=== PATIENT | female | born 1970 | race Caucasian/White ===

== ENCOUNTER 2024-07-30 10:30 | Outpatient (REF) | payer OTHER, SELFPAY ==
[2024-07-30 12:18] LABS: Anion Gap 14 (12-20); Blood Urea Nitrogen 31 mg/dL (9-16); Calcium 9.4 mg/dL (8.4-10.2); Carbon Dioxide 22 mmol/L (22-29); Chloride 109 mmol/L (96-108); Estimated Glomerular Filt Rate > 60; Glucose Random 87 mg/dL (60-115); Potassium 4.3 mmol/L (3.3-5.1); Sodium 141 mmol/L (135-145)
[2024-07-30 12:36] LABS: TSH reflex Free T4 0.15 uIU/mL (0.32-4.0)
[2024-08-03 17:43] LABS: Oxcarbazepine 30.7 mcg/mL (8.0-35.0)
== END 2024-07-30 10:31 | disposition home or self-care (01) ==
LOC: HO.LAB 10:30
PROVIDERS: PCP Internal Medicine; Visit Provider Psychiatry & Neurology Neurology
DX: G40.909 Epilepsy, unspecified, not intractable, without status epilepticus (principal)
CPT/HCPCS: 36415; 80048; 80339; 84439; 84443

== ENCOUNTER 2025-03-24 14:03 | Outpatient (REF) | payer OTHER, SELFPAY ==
--- NOTE | 2025-03-24 | EEG_ITS ---
Description: This is a routine waking EEG using the 10-20 electrode placement system. The waking background activity consists of a poorly defined and poorly modulated low voltage fast frequency diffusely intermixed with intermittent 9-10 hertz posterior frequencies. Recurrent episodes of left greater than right temporal slowing with occasional sharp transients and a single burst of 5-6 hertz sharp configuration theta is seen from the left temporal region. During sleep symmetrical frontal central sleep spindles develop a both hemispheres Photic stimulation is without activation.? Hyperventilation produces no change in the background activity. Impression: This EEG is considered abnormal due to episodes of left greater than right temporal slowing sharp transients in a burst of rhythmic sharp configuration left temporal theta discharge that is suggestive of a seizure focus in the left temporal region. Clinical correlation is suggested MTDD
--- OUTSIDE RECORDS SUMMARY | 2025-03-24 15:22 | XMS_ITS | Continuity of Care Document ---
Author Organization [facility] Address [address] [place] [address] Phone [phone] Care Team Providers Care [employer] Operator Name Role Phone Amelia Braxton M.D. Care Team Information Receiv er [phone] Problems Active Problems Provider Date Hypothyroidism German Gresham M.D. Onset: 1 10/08/2021 [place] thyroiditis German Gresham M.D. On set: 08/07/2022 Social History Type Date Description Comments Sex Female Sex Unknown Lives With Alone ETOH Use Rarely consumes alcohol Tobacco Use Start: Unknown Patient has never smoked Allergies and adverse reactions Active Allergies Criticality Reaction Severity Comments Date Penicillin Unable to assess criticality 08/07/2022 Erythromycin Unable to assess criticality 08/07/2022 Sulfamethoxazole Unable to assess criticality 08/07/2022 Adhesives Unable to assess criticality 08/07/2022 Medications Active Medications SIG Qnty Indications Order ing Provider Date Levothyroxine [id number] Tablets Take 1 Tablet By Mouth Every Day In The Morning Take 1/2 Tablet On Sunday 90tabs German Gresham M.D. 07/20/2022 Sodium Fluoride 5000 PPM Sensitive1.1-5% Gel Use as Directed Unknown Ondansetron HCL4mg Tablets Take 1 Tablet By Mouth 2 Times Daily as Needed For Nausea. German Donald MD Sumatriptan [id number] Tablets Please See Attached For Detailed Directions Unknown [id number] Solution Rec Unknown Ammonium Susglst14% Cream Apply And Rub In A Thin Film To Affected Areas Twice Daily.(Am And PM). Unknown Betamethasone Dipropionate0.05% Lotion Apply Daily To Scalp as Needed Unknown [id number] Capsules Take 1-2 Capsules By Mouth Every 8 Hours as Needed For Cough Valentin Lima MD Buspirone GYB74vl Tablets Take 1 Tablet By Mouth Three Times A Day Unknown Wmttkgtgl08qg Tablets ER 24HR Take 1 Tablet By Mouth Every Day Lona Spencer, Vokwlhmrv9xl Tablets Take 1 Tablet (1 MG ) By Oral Route Once Daily For 90 Days Unknown Rosuvastatin Cleqkdz33ne Tablets Take 1 Tablet By Mouth Every Day Amelia Braxton M.D. Neomycin/Polymyxin/H ydrocortisone (Otic)[id number] Suspension Instill 4 Drops Into Right Ear Every 8 Hours For 10 Days Torin Mathis NP [facility] Jntzynbmepbjq140vu Tablets Take 3 Tablets By Mouth Every 6 Hours as Needed For Moderate Pain For 7 Days Unknown Flarex0.1% Suspension Use One Drop In Both Eye 3 Times A Day Yon Pino Gshgbrs477zb Capsules Take 2 Capsules Intravesically Every Week Bring To Office For Bladder Instilla Lona Spencer, Epinephrine0.3mg/0.3 ML Solution Auto-Inject Use as Directed For Anaphylaxis Then Call 911 Valentin Lima MD Hydroxyzine OOO85jw Tablets Take 1 To 2 Tablets By Mouth Every Day AT Bedtime as Needed Unknown [facility] Senna8.6mg Tablets Take 2 Tablets By Mouth AT Bedtime German Donald MD Lorazepam0.5mg Tablets Take 1 Tablet By Mouth Three Times A Day Unknown [id number] Capsules Take 1 Capsule (200 MG) By Mouth Once Daily In The Evening For 90 Unknown Triamcinolone Acetonide0.1% Cream Mix With Cerave Cream, Apply Neck To Toes Daily After Showers Unknown Fluoxetine FMZ02cn Capsules Take 3 Capsules By Mouth Every Evening Unknown Urea40% Cream Apply And Rub In A Thin Film To Affected Area(S) Once Or Twice Daily. Unknown Bupropion Hydrochloride ER (XL)300mg Tablets ER 24HR Take 1 Tablet By Mouth Every Day In The Morning Unknown Trazodone LVS60mf Tablets Take 1/2 Tablet By Mouth Everyday AT Bedtime Unknown Tacrolimus0.1% Ointment Apply To Groin Topically Once Daily as Needed Unknown Lecnpqgfqotwy043fy Tablets Take 1 Tablet By Mouth Twice A Day Unknown Cpfdiyex221080Avum/G M Powder Apply To Affected Area Twice A Day Unknown Metronidazole0.75% Cream Apply To Face Every Day Unknown Ofloxacin (Otic)0.3% Solution Instill 10 Drops Into Affected Ear(S) By Otic Route Once Daily Unknown Estradiol0.1mg/GM Cream Apply 1 Gram Vaginally 3 Times A Week Unknown Vital Signs Date Vital Result Comment 09/25/2023 1:34pm BP Systolic 120 mmHg BP Diastolic 60 mmHg Heart Rate 72 /min Height 61 inches 5'1 Weight 133.31 lb BMI (Body Mass Index) 25.2 kg/m2 Results Test Acquired Date Facility Test Result H/L Range N ote TSH With Reflex To FT4 09/26/2023 [facility] TSH With Reflex To FT4 <pending> TSH With Reflex To FT4 09/25/2023 [facility] TSH With Reflex To FT4 0.37 uIU/mL Low (0.4-4.2) Free T4 09/25/2023 [facility] Free T4 1.11 ng/dL (0.70-1.80) TSH 01/01/2023 [facility] TSH 0.86 uIU/mL (0.4-4.2) TSH 08/07/2022 [facility] TSH <pending> TSH 07/19/2022 [facility] TSH 1.15 uIU/mL (0.4-4.2) Medical Devices Description No Information Available Encounters Type Date Location Provider Dx Diagnosis Office Visit 09/25/2023 1:15p Main Office German Gresham M.D. E06.3 Autoimmune thyroiditis E03.9 Hypothyroidism, unsp ecified Assessments Date Code Description Provider 09/26/2023 E03.9 Hypothyroidism, unspecified German Gresham M.D. 09/25/2023 E06.3 [place] thyroiditis German tapia M.D. 09/25/2023 E03.9 Hypothyroidism, unspecified German Gresham M.D. Plan of Treatment Future Appointment(s):* 04/01/2025 11:15 am - German Gresham M.D. at Main Office 09/25/2023 - German Gresham M.D.* E06.3 [place] thyroiditis * E03.9 Hypothyroidism, unspecified Functional Status Description No Information Available Mental Status Description No Information Available Referrals Description No Information Available
--- OUTSIDE RECORDS SUMMARY | 2025-03-24 15:22 | XMS_ITS | Data Portability ---
Author Organization [place] - [facility], Allergy Address [address] [place] [id number] Assessment Encounter Date Assessment Date Assessment LastModified by Organization Details LastModified Time 10/23/2024 10/23/2024 53 yo F presents for the followin. 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 I reassured her her ears looked healthy today. 2. Symptoms of nasal congestion and scratchy throat. She has chronic cough and vocal cord dysfunction. She did not schedule previously ordered speech therapy eval, so I sent an updated referral today. She is already on a good allergy regimen which she should continue. She can use water based lubricant for dryness. 3. History of left stapedotomy in 2010. She is due for updated audiogram at her next follow up. [email or web address] Not available 10/26/2024 13:34:02 Plan of Treatment Reminders Order Date Submit Date Provider Last Modified By Organization Details Last Modified Time Details Appointments Hearing Test 2024 09:30A M Hearing Test Not available Not available Not available Establish ed 15 2024 10:00A M JOCELYNE ZARAGOZA MD Not available Not available Not available Lab None recorded. Referral speech therapy referral - previousl y referred, vocal cord dysfuncti on and chronic cough 2024 025 [email or web address] Hillary Belinda, [address] [facility], [place], [address], 11/05/2024 11:55:40 Procedures None recorded. Surgeries None recorded. Imaging None recorded. Medication Orders None recorded. Patient TargetsNo targets recorded. Patient InstructionsNo instructions recorded. Reason for Referral previously referred, vocal c ord dysfunction and chronic cough Referring Physician: Jocelyne Zaragoza, Otolaryngology, Encounter Date: 10/23/2024 Problems Name Problem SNOMED Code Status Onset Date Resolution Date Notes Provider Name and Address Organization Details Recorded Time Gastro-es ophageal reflux disease with esophagit is [id number] Active 2013 Diseases of esophagus : Reflux esophagit is; CMS Risk: moderate risk CMS Treatment : establish ed problem (to examiner) : unstable or worsening Note: Date Diagnosed : 4 12:14 PM (530.11) Not Available [facility] 4 02:59:08 Rosacea 833292414 Active 2013 Erythemat ous condition s: Rosacea; CMS Risk: low risk CMS Treatment : new problem (to examiner) : additiona l workup planned N ote: Date Diagnosed : 07/07/2014 5:03 PM (695.3) Not Available [facility] 4 02:59:06 Skin plastic surgery NOS Active 2013 Elective surgery for purposes other than remedying health states: Other plastic surgery for unaccepta ble cosmetic appearanc e; CMS Risk: low risk CMS Treatment : new problem (to examiner) : additiona l workup planned N ote: Date Diagnosed : 07/07/2014 5:02 PM (V50.1) Not Available [facility] 4 02:59:06 Conductiv e hearing loss [id number] Active 2014 Conductiv e hearing loss, unilatera l, left ear, with unrestric christina hearing on the contralat eral side; Note: Date Diagnosed : 06/03/2015 12:35 PM (H90.12) Not Available [facility] 4 02:59:09 Cosmetic surgery Active 2014 Encounter for cosmetic procedure ; Note: Date Diagnosed : 5 10:25 AM (Z41.1) Not Available [facility] 4 02:59:09 Chronic rhinitis 11368307 Active 2015 Rhinitis, chronic; CMS Risk: moderate risk Note : Date Diagnosed : 4 12:14 PM (472.0) ; Start Date : 4 Chronic rhinitis; Note: Date Diagnosed : 01/19/2016 11:39 PM (J31.0) Not Available [facility] 4 02:59:10 Nasal congestio n 17986982 Active 2015 Nasal congestio n; Note: Date Diagnosed : 01/19/2016 11:39 PM (R09.81) Not Available [facility] 4 02:59:07 Obstructi ve sleep apnea syndrome 49114787 Active 2015 Obstructi ve sleep apnea (adult) (pediatri c); Note: Date Diagnosed : 02/12/2016 12:54 PM (G47.33) Not Available [facility] 4 02:59:08 Skin finding 633106976 Active 2015 Other skin changes; Note: Date Diagnosed : 02/12/2016 12:54 PM (R23.8) Not Available [facility] 4 02:59:06 Bilateral temporoma ndibular joint pain [id number] 532717 Active 2016 Arthralgi a of bilateral temporoma ndibular joint; Note: Date Diagnosed : 12/20/2016 2:44 PM (M26.623) Not Available [facility] 4 02:59:08 Impacted cerumen in right ear [id number] 06952 Active 2016 Impacted cerumen, right ear; Note: Date Diagnosed : 12/20/2016 2:42 PM (H61.21) Not Available [facility] 4 02:59:09 Chronic sialadeni tis 137081765 Active 2016 Chronic sialoaden itis; Note: Date Diagnosed : 01/08/2017 11:49 AM (K11.23) Not Available [facility] 4 02:59:09 Dysphonia 64211397 Active 2016 Hoarsenes s; Note: Date Diagnosed : 01/08/2017 11:52 AM (R49.0) Not Available [facility] 4 02:59:06 Snoring 82398833 Active 2016 Snoring; Note: Date Diagnosed : 02/05/2017 4:08 PM (R06.83) Not Available [facility] 4 02:59:10 Stomatiti s 99090006 Active 2019 Oral thrush; Note: Date Diagnosed : 10/08/2019 10:45 AM (B37.0) Not Available [facility] 4 02:59:07 Candidias is of mouth 80824533 Active 2019 Oral thrush; Note: Date Diagnosed : 10/08/2019 10:45 AM (B37.0) Not Available [facility] 4 02:59:07 Sensorine ural hearing loss in left ear [id number] 109 Active 2020 Sensorine ural hearing loss, unilatera l, left ear, with restricte d hearing on the contralat eral side; Note: Date Diagnosed : 11/01/2020 8:49 AM (H90.A22) Not Available [facility] 4 02:59:07 Cough 03755612 Active 2020 Cough; CMS Risk: moderate risk Note : Date Diagnosed : 4 12:14 PM (786.2) ; Start Date : 4 Cough, unspecifi ed; Note: Changed from R05 to R05.9 (07/16/20 23 4:35 PM) , Date Diagnosed : 01/05/2021 3:54 PM (R05) Not Available [facility] 4 02:59:07 Otalgia of right ear 0150543723 Active 2022 Otalgia, right ear; Note: Date Diagnosed : 03/09/2023 4:40 PM (H92.01) Not Available [facility] 4 02:59:08 Notes:FP Facial Plastics (00 0.0) Problem Notes None recorded. Procedures Surgical History Date Name Laterality Status Provider Name and Address Organization Details Recorded Time left stapedectomy completed JOCELYNE ZARAGOZA MD [address] [place] [address], [phone], [place] - [facility] 10/26/2024 13:30:34 Imaging Results None recorded. Procedure Notes None recorded. Medical Equipment None Reported. Allergies Allergen ID Allergen Name Allergen Category Reaction Reaction Severity Criticality Documentation Date Start Date Code Code System Note Provider Name and Address Organization Details Recorded Time 139360 amoxicill in medicatio n other Not available Not available 01/15/2024 723 RxNorm React ion: unkno wn, unspe cifie d;; Not Available [facility] 4 01:12:54 425219 adhesive bandage medicatio n other Not available Not available 01/15/2024 31228 UNK React ion: unkno wn, unspe cifie d;; Not Available [facility] 4 01:12:55 946694 penicilli n V potassium medicatio n other Not available Not available 01/15/2024 25207 5 RxNorm React ion: unkno wn, unspe cifie d;; Not Available [facility] 4 01:12:56 177480 Substance with sulfonami de structure and antibacte rial mechanism of action (substanc e) medicatio n other Not available Not available 01/15/2024 11788 8003 SNOMED React ion: unkno wn, unspe cifie d;; Not Available [facility] 4 01:12:57 117034 erythromy javi ethylsucc inate medicatio n other Not available Not available 01/15/2024 4056 RxNorm React ion: unkno wn, unspe cifie d;; Not Available [facility] 4 01:12:59 Medications Name Sig Start Date Stop Date Status Note LastModified by Organization Details LastModified Time ferrocite 324 mg tabs 10/23 completed Not Available Not Available Not Available celecoxib 200 mg capsule TAKE 1 CAPSULE BY MOUTH EVERY DAY active Not Available Not Available No t Available fluoxetin e 40 mg capsule active Not Available Not Available Not Available amoxicill in 500 mg capsule 10/23 completed Medicati on ID: [id number] B rand Name: amoxicil daniel Send Method: E-Prescr ibed Sub s Allowed: subs OK Medic ationGen ericName : amoxicil daniel Not Available Not Available Not Available fluconazo le 100 mg tablet 2 TABS TO START THEN 1 TAB EACH DAY UNTIL SYMPTOMS RESOLVE 10/23 completed Not Available Not Available Not Available oxcarbaze pine 150 mg tablet active Not Available Not Available No t Available nystatin 100,000 unit/mL oral suspensio n 10/29 completed Medicati on ID: [id number] Gonzalo valdes By Name: Jocelyne wills MD Brand Name: nystatin Send Method: E-Prescr ibed Sub s Allowed: subs OK Speci al Instruct ion: 5 ml swish and spit four times daily x 2 weeks Me dication GenericN connor: nystatin Not Available Not Available Not Available venlafaxi ne ER 37.5 mg capsule,e xtended release 24 hr 12/20 completed Medicati on ID: [id number] Du ration Value: 30 Reason: () Brand Name: venlafax ine Send Method: E-Prescr ibed Sub s Allowed: subs OK Speci al Instruct ion: TAKE 1 CAPSULE EVERY MORNING FOR A TDD OF 187.5 MG Medic ationGen ericName : venlafax ine Not Available Not Available Not Available ketoconaz ole 2 % shampoo LATHER INTO SCALP 3 X WEEKLY, LET SIT FOR 5 MINUTES THEN RINSE active Not Available Not Available No t Available trazodone 50 mg tablet TAKE 1 TABLET BY MOUTH EVERYDAY AT BEDTIME active Not Available Not Available No t Available cetirizin e 10 mg tablet TAKE 1 TABLET BY MOUTH EVERY DAY active Not Available Not Available No t Available ibuprofen 800 mg tablet 10/29 completed Medicati on ID: 151 Dura tion Value: 30 Brand Name: ibuprofe n Send Method: E-Prescr ibed Sub s Allowed: subs TRINI Morgan al Instruct ion: TAKE 1 TABLET THREE TIMES A DAY , TAKE WITH FOOD Med icationG enericNa me: ibuprofe n Not Available Not Available Not Available fluconazo le 150 mg tablet TAKE 1 TABLET BY MOUTH THEN REPEAT IN 48 TO 72 HOURS 10/23 completed Not Available Not Available Not Available ketotifen 0.025 % (0.035 %) eye drops INSTILL 1 DROP INTO BOTH EYES TWICE A DAY active Not Available Not Available No t Available ranitidin e 300 mg tablet 06/03 completed Medicati on ID: 149 Dura tion Value: 30 Reason: () Brand Name: ranitidi ne HCl Send Method: E-Prescr ibed Sub s Allowed: subs OK Speci al Instruct ion: TAKE 1 TABLET TWICE DAILY Me dication GenericN connor: ranitidi ne HCl Not Available Not Available Not Available sumatript an 100 mg tablet TAKE 1 TABLET AT LEAST 2 HOURS BETWEEN DOSES NEEDED ORALLY ONCE A DAY 30 DAYS active Not Available Not Available No t Available meloxicam 15 mg tablet 10/23 completed Not Available Not Available Not Available ondansetr on HCl 4 mg tablet TAKE 1 TABLET BY MOUTH 2 TIMES DAILY NEEDED FOR NAUSEA. active Not Available Not Available No t Available dextroamp hetamine- amphetami ne 10 mg tablet 10/23 completed Medicati on ID: [id number] B rand Name: dextroam phetamin e-amphet amine Se nd Method: E-Prescr ibed Sub s Allowed: subs OK Speci al Instruct ion: TAKE 1 TABLET BY MOUTH THREE TIMES A DAY Medi cationGe nericNam e: dextroam phetamin e-amphet amine Not Available Not Available Not Available clonazepa m 0.5 mg tablet TAKE 1 TABLET BY MOUTH 2 TIMES EVERY DAY active Not Available Not Available No t Available metronida zole 250 mg tablet 10/23 completed Medicati on ID: [id number] B rand Name: metronid azole Se nd Method: E-Prescr ibed Sub s Allowed: subs OK Medic ationGen ericName : metronid azole Not Available Not Available Not Available Elmiron 100 mg capsule 10/23 completed Medicati on ID: [id number] B rand Name: Elmiron Send Method: E-Prescr ibed Sub s Allowed: subs OK Medic ationGen ericName : Elmiron Not Available Not Available Not Available venlafaxi ne ER 150 mg capsule,e xtended release 24 hr 12/20 completed Medicati on ID: [id number] Du ration Value: 30 Reason: () Brand Name: venlafax ine Send Method: E-Prescr ibed Sub s Allowed: subs OK Speci al Instruct ion: TAKE 1 CAPSULE EVERY MORNING Medicati onGeneri cName: venlafax ine Not Available Not Available Not Available lidocaine HCl 2 % mucosal jelly 10/29 completed Medicati on ID: [id number] D uration Value: 5 Brand Name: lidocain e HCl Send Method: E-Prescr ibed Sub s Allowed: subs OK Medic ationGen ericName : lidocain e HCl Not Available Not Available Not Available oxcarbaze pine 300 mg tablet active Not Available Not Available No t Available omeprazol e 40 mg capsule,d elayed release 10/29 completed Medicati on ID: [id number] D uration Value: 30 Brand Name: omeprazo le Send Method: E-Prescr ibed Sub s Allowed: subs OK Medic ationGen ericName : omeprazo le Not Available Not Available Not Available triamcino lone acetonide 0.1 % topical cream APPLY TO TRUNK AND EXTREMIT IES TWICE DAILY X 2 WEEKS OR LESS THEN NEEDED 10/23 completed Not Available Not Available Not Available levothyro xine 75 mcg tablet 10/29 completed Medicati on ID: [id number] D uration Value: 30 Brand Name: levothyr oxine Se nd Method: E-Prescr ibed Sub s Allowed: subs OK Speci al Instruct ion: TAKE 1 TABLET BY MOUTH EVERY DAY Medi [facility] nericNam e: levothyr oxine Not Available Not Available Not Available lorazepam 0.5 mg tablet 2020 active Medicati on ID: [id number] B rand Name: lorazepa m Send Method: E-Prescr ibed Sub s Allowed: subs OK Medic ationGen ericName : lorazepa m Not Available Not Available Not Available metoclopr amide 5 mg tablet TAKE 1 TABLET BY MOUTH THREE TIMES A DAY 10/23 completed Not Available Not Available Not Available estradiol 1 mg tablet TAKE 1 TABLET (1 MG) BY ORAL ROUTE ONCE DAILY FOR 90 DAYS FOR 90 DAYS active Not Available Not Available No t Available amitripty line 10 mg tablet 10/29 completed Medicati on ID: [id number] D uration Value: 30 Brand Name: amitript yline Se nd Method: E-Prescr ibed Sub s Allowed: subs OK Medic ationGen ericName : amitript yline Not Available Not Available Not Available levothyro xine 50 mcg tablet 10/29 completed Medicati on ID: [id number] D uration Value: 30 Brand Name: levothyr oxine Se nd Method: E-Prescr ibed Sub s Allowed: subs OK Speci al Instruct ion: TAKE 1 TABLET BY MOUTH EVERY DAY Medi cationGe nericNam e: levothyr oxine Not Available Not Available Not Available cephalexi n 500 mg capsule TAKE 1 CAPSULE BY MOUTH 3 TIMES A DAY FOR 7 DAYS 10/23 completed Not Available Not Available Not Available tacrolimu s 0.1 % topical ointment active Not Available Not Available Not Available levothyro xine 125 mcg tablet 10/23 completed Medicati on ID: [id number] B rand Name: levothyr oxine Se nd Method: E-Prescr ibed Sub s Allowed: subs OK Medic ationGen ericName : levothyr oxine Not Available Not Available Not Available neomycin- polymyxin -dexameth 3.5 mg/mL-10, 000 unit/mL-0 .1% eye drops INSTILL 1 DROP INTO BOTH EYES FOUR TIMES A DAY USE FOR 2 WEEKS, THEN STOP 10/23 completed Not Available Not Available Not Available triamcino lone acetonide 0.1 % topical ointment 2020 active Medicati on ID: [id number] B rand Name: triamcin olone acetonid e Send Method: E-Prescr ibed Sub s Allowed: subs OK Speci al Instruct ion: MIX WITH CERAVE AND APPLY TO SKIN DAILY AFTER SHOWER NEEDED FOR ITCH Med icationG enericNa me: triamcin olone acetonid e Not Available Not Available Not Available clotrimaz ole-betam ethasone 1 %-0.05 % topical cream 2020 active Medicati on ID: [id number] B rand Name: clotrima zole-bet amethaso ne Send Method: E-Prescr ibed Sub s Allowed: subs OK Speci al Instruct ion: APPLY TO AFFECTED AREA TWICE A DAY MORNING AND EVENING FOR 2 WEEKS Me dication GenericN connor: clotrima zole-bet amethaso ne Not Available Not Available Not Available tacrolimu s 0.03 % topical ointment 10/23 completed Medicati on ID: [id number] B rand Name: tacrolim us Send Method: E-Prescr ibed Sub s Allowed: subs OK Medic ationGen ericName : tacrolim us Not Available Not Available Not Available levothyro xine 150 mcg tablet TAKE 1 TABLET BY MOUTH EVERY DAY IN THE MORNING TAKE 1/2 TABLET ON SUNDAY active Not Available Not Available No t Available progester one micronize d 200 mg capsule TAKE 1 CAPSULE BY MOUTH EVERY DAY AT NIGHT active Not Available Not Available No t Available nystatin- triamcino lone 100,000 unit/g-0. 1 % topical cream APPLY TO RASH UNDER BREAST TWICE A DAY UP TO 2 WEEKS, 1 WEEK OFF MAY REPEAT. active Not Available Not Available No t Available betametha sone dipropion ate 0.05 % topical cream APPLY TO LOWER LEGS FOR FLARING AND ITCHING TWICE A DAY FOR 2 WEEKS OR LESS 10/23 completed Not Available Not Available Not Available Senna Laxative 8.6 mg tablet 10/23 completed Medicati on ID: [id number] B rand Name: Senna Laxative Send Method: E-Prescr ibed Sub s Allowed: subs OK Speci al Instruct ion: TAKE 2 TABLETS BY MOUTH AT BEDTIME Medicati onGeneri cName: Senna Laxative Not Available Not Available Not Available CombiPatc h 0.05 mg-0.25 mg/24 hr transderm al 12/20 completed Medicati on ID: 159 Dura tion Value: 27 Reason: () Brand Name: CombiPat ch Send Method: E-Prescr ibed Sub s Allowed: subs OK Speci al Instruct ion: APPLY 1 PATCH BY TRANSDER MAL ROUTE TWICE WEEKLY FOR 30 DAYS Med icationG enericNa me: CombiPat ch Not Available Not Available Not Available omeprazol e 20 mg capsule,d elayed release 06/03 completed Medicati on ID: 157 Dura tion Value: 30 Reason: () Brand Name: omeprazo le Send Method: E-Prescr ibed Sub s Allowed: subs OK Speci al Instruct ion: TAKE 1 CAPSULE BY ORAL ROUTE EVERY DAY BEFORE A MEAL Med icationG enericNa me: omeprazo le Not Available Not Available Not Available monteluka st 10 mg tablet 10/23 completed Medicati on ID: [id number] B rand Name: monteluk ast Send Method: E-Prescr ibed Sub s Allowed: subs OK Speci al Instruct ion: TAKE 1 TABLET BY MOUTH EVERYDAY AT BEDTIME Medicati onGeneri cName: monteluk ast Not Available Not Available Not Available hydroxyzi ne HCl 25 mg tablet 12/20 completed Medicati on ID: 150 Dura tion Value: 30 Reason: () Brand Name: hydroxyz ine HCl Send Method: E-Prescr ibed Sub s Allowed: subs OK Speci al Instruct ion: TAKE 1 TABLET BY MOUTH AT BEDTIME Medicati onGeneri cName: hydroxyz ine HCl Not Available Not Available Not Available ammonium lactate 12 % topical cream APPLY THIN FILM TO AFFECTED AREAS TWICE DAILY (MORNING & EVENING) . RUB IN GENTLY & COMPLETE LY. active Not Available Not Available No t Available mometason e 0.1 % topical ointment 10/23 completed Medicati on ID: [id number] B rand Name: mometaso ne Send Method: E-Prescr ibed Sub s Allowed: subs OK Speci al Instruct ion: APPLY IS A THIN FILM TO THE PERIANAL SKIN TWICE DAILY Me dication GenericN connor: mometaso ne Not Available Not Available Not Available gabapenti n 100 mg capsule 06/03 completed Medicati on ID: 163 Dura tion Value: 15 Reason: () Brand Name: gabapent in Send Method: E-Prescr ibed Sub s Allowed: subs OK Speci al Instruct ion: TAKE 2 CAPSULES BY MOUTH EVERY DAY AT BEDTIME FOR 1 WEEK THEN INCREASE TO TWICE DAILY Me dication GenericN connor: gabapent in Not Available Not Available Not Available estradiol 0.5 mg tablet 10/29 completed Medicati on ID: [id number] D uration Value: 10 Brand Name: estradio l Send Method: E-Prescr ibed Sub s Allowed: subs OK Speci al Instruct ion: TAKE 1 TABLET (0.5 MG) BY ORAL ROUTE ONCE DAILY FOR 30 DAYS Med icationG enericNa me: estradio l Not Available Not Available Not Available clobetaso l 0.05 % topical ointment APPLY TO ANKLES TWICE A DAY FOR 2 WEEKS 10/23 completed Not Available Not Available Not Available nystatin 100,000 unit/gram topical powder APPLY TWICE DAILY UNDER BREASTS FOR SEVEN DAYS NEEDED 10/23 completed Not Available Not Available Not Available diazepam 10 mg tablet TAKE 1 TABLET VAGINALL Y AT BEDTIME NEEDED 10/23 completed Not Available Not Available Not Available epinephri ne 0.3 mg/0.3 mL injection , auto-inje ctor USE DIRECTED FOR ANAPHYLA XIS active Not Available Not Available No t Available estradiol 0.01% (0.1 mg/gram) vaginal cream INSERT 1 GRAM VAGINALL Y AT BEDTIME 3 TIMES A WEEK active Not Available Not Available No t Available albuterol sulfate HFA 90 mcg/actua tion aerosol inhaler 10/23 completed Medicati on ID: [id number] B rand Name: albutero l sulfate Send Method: E-Prescr ibed Sub s Allowed: subs OK Speci al Instruct ion: INHALE 2 TO 4 PUFFS EVERY 4 HOURS FOR COUGH/WH EEZING M edicatio nGeneric Name: albutero l sulfate Not Available Not Available Not Available celecoxib 100 mg capsule TAKE 1 CAPSULE BY MOUTH TWICE A DAY FOR 30 DAYS active Not Available Not Available No t Available oxybutyni n chloride 5 mg tablet 06/03 completed Medicati on ID: 148 Dura tion Value: 30 Reason: () Brand Name: oxybutyn in chloride Send Method: E-Prescr ibed Sub s Allowed: subs OK Speci al Instruct ion: TAKE 1 TABLET BY MOUTH EVERY DAY [facility] nericNam e: oxybutyn in chloride Not Available Not Available Not Available betametha sone dipropion ate 0.05 % topical ointment 10/23 completed Medicati on ID: [id number] B rand Name: betameth asone dipropio ariadna Sen d Method: E-Prescr ibed Sub s Allowed: subs OK Speci al Instruct ion: APPLY TO RASH ON LEGS TWICE A DAY NEEDED UP TO 2 WEEKS FOR ITCH Med icationG enericNa me: betameth asone dipropio ariadna Not Available Not Available Not Available hydroxyzi ne HCl 10 mg tablet TAKE 1-3 TABLETS BY MOUTH AT BEDTIME NEEDED FOR ITCH active Not Available Not Available No t Available betametha sone dipropion ate 0.05 % lotion APPLY TO AFFECTED AREA ON LOWER LEG AND AREAS OF ITCH AND FLARING TWICE A DAY X 2 WEEKS OR LESS active Not Available Not Available No t Available ipratropi um bromide 21 mcg (0.03 %) nasal spray USE 1 SPRAY IN EACH NOSTRIL TWICE A DAY NEEDED FOR NASAL CONGESTI ON active Not Available Not Available No t Available diazepam 5 mg tablet 2020 active Medicati on ID: [id number] B rand Name: diazepam Send Method: E-Prescr ibed Sub s Allowed: subs OK Medic ationGen ericName : diazepam Not Available Not Available Not Available buspirone 15 mg tablet active Not Available Not Available Not Available Urelle 81 mg-10.8 mg-40.8 mg tablet 10/29 completed Medicati on ID: [id number] D uration Value: 5 Brand Name: Urelle S end Method: E-Prescr ibed Sub s Allowed: subs OK Speci al Instruct ion: TAKE 1 TABLET BY MOUTH TWICE A DAY NEEDED M edicatio nGeneric Name: Urelle Not Available Not Available Not Available rosuvasta tin 10 mg tablet 2020 active Medicati on ID: [id number] B rand Name: rosuvast atin Sen d Method: E-Prescr ibed Sub s Allowed: subs OK Medic ationGen ericName : rosuvast atin Not Available Not Available Not Available rosuvasta tin 20 mg tablet TAKE 1 TABLET BY MOUTH EVERY DAY 10/23 completed Not Available Not Available Not Available bupropion HCl XL 300 mg 24 hr tablet, extended release TAKE 1 TABLET BY MOUTH EVERY DAY IN THE MORNING active Not Available Not Available No t Available bupropion HCl XL 150 mg 24 hr tablet, extended release 01/05 completed Medicati on ID: [id number] B rand Name: bupropio n HCl Send Method: E-Prescr ibed Sub s Allowed: subs OK Medic ationGen ericName : bupropio n HCl Not Available Not Available Not Available Ferrocite 324 mg (106 mg iron) tablet TAKE 1 TABLET BY MOUTH EVERY DAY 10/23 completed Not Available Not Available Not Available nitrofura ntoin monohydra te/macroc rystals 100 mg capsule TAKE 1 CAPSULE BY MOUTH TWICE A DAY 10/23 completed Not Available Not Available Not Available Systane (PF) 0.4 %-0.3 % eye drops in a dropperet te INSTILL 1 DROP INTO BOTH EYES THREE TIMES A DAY NEEDED *OVER THE COUNTER NOT COVERED* active Not Available Not Available No t Available Bina-D 24 Hour 180 mg-240 mg tablet,ex tended release 2016 active Medicati on ID: [id number] B rand Name: Bina- D 24 Hour Sen d Method: E-Prescr ibed Sub s Allowed: subs OK Medic ationGen ericName : Bina- D 24 Hour Not Available Not Available Not Available sodium fluoride 1.1 %-potassi um nitrate 5 % dental paste USE DAILY DIRECTED active Not Available Not Available No t Available cholecalc iferol (vitamin D3) 1,250 mcg (50,000 unit) capsule TAKE 1 CAPSULE BY MOUTH EVERY WEEK FOR 84 DAYS active Not Available Not Available No t Available levocetir izine 5 mg tablet 12/20 completed Medicati on ID: [id number] Dura tion Value: 30 Reason: () Brand Name: levoceti rizine S end Method: E-Prescr ibed Sub s Allowed: subs OK Speci al Instruct ion: TAKE 1 TABLET BY MOUTH EVERY DAY Medi cationGe nericNam e: levoceti rizine Not Available Not Available Not Available lidocaine 5 % topical ointment 2020 active Medicati on ID: [id number] B rand Name: lidocain e Send Method: E-Prescr ibed Sub s Allowed: subs OK Speci al Instruct ion: APPLY TO ITCH UNDER BREAST AND GENITAL AREA TWICE DAILY Me dication GenericN connor: lidocain e Not Available Not Available Not Available Minivelle 0.05 mg/24 hr transderm al patch 06/03 completed Medicati on ID: [id number] Dura tion Value: 28 Reason: () Brand Name: Minivell e Send Method: E-Prescr ibed Sub s Allowed: subs OK Speci al Instruct ion: APPLY 1 PATCH BY TRANSDER MAL ROUTE TWICE WEEKLY FOR 28 DAYS Med icationG enericNa me: Minivell e Not Available Not Available Not Available ivermecti n 1 % topical cream APPLY TO AFFECTED AREA OF FACE EVERY DAY FOR ROSACEA active Not Available Not Available No t Available Flonase Sensimist 27.5 mcg/actua tion nasal spray,maru pension 2020 active Medicati on ID: [id number] B rand Name: Flonase Sensimis t Send Method: E-Prescr ibed Sub s Allowed: subs OK Medic ationGen ericName : Flonase Sensimis t Not Available Not Available Not Available Dupixent 300 mg/2 mL subcutane ous syringe 2020 active Medicati on ID: [id number] B rand Name: Dupixent Syringe Send Method: E-Prescr ibed Sub s Allowed: subs OK Medic ationGen ericName : Dupixent Syringe Not Available Not Available Not Available Dupixent 300 mg/2 mL subcutane ous pen injector 10/23 completed Not Available Not Available Not Available Vitals Date Recorded Body height Body mass index (BMI) Body weight Provider Name and Address Organization Details Last Updated DateTime 10/23/2024 154.94 cm 22.9 kg/m2 99766.68 g Laura Chadwick MA - [facility] 10/23/2024 11:28:26 Social History None recorded. Functional Status None recorded. Mental Status None recorded. Family History Nothing Reported. Medical History No medical history recorded. Gynecological HistoryNo gynecological history recorded. Obstetrics History GPAL:G 0 P 0 0 0 0 Past Encounters Encounter ID Performer Location Encounter Start Date Encounter Closed Date Diagnosis/Indication Diagnosis SNOMED-CT Code Diagnosis ICD10 Code Diagnosis Note [id number] JOCELYNE ZARAGOZA MD [facility] [address] [phone] 10/23/2024 11:20:35 10/23/2024 12:18:55 Cough 74838671 R05.9 Dysphonia 96135276 R49.0 Health Concerns Section Related Observation LastModified by Organization Detai ls LastModified Time None Recorded Concern Status LastModified by Organization Details LastModified Time None Recorded Advance Directives Directive None Recorded Payers Insurance Date Sequence Insurance Name Policy Number Policy Atkinson Covered Member ID Atkinson Member ID Guarantor Name 10/23/2024 1 [facility] [id number] Lorri Sanchez [id number] Lorri Sanchez 01/09/2025 2 [facility] - [facility] (O) Lorri Sanchez [id number] Lorri Sanchez Notes Date Note Type Note Provider Name and Address Organization Details Recorded Time 10/23/2024 text/html 53 yo F presents for routine follow up. nose congested, throat scratchy, continues on sensimist and ipratropium no nosebleed in awhile right ear can bother, feels hearing is a little down wears night guardprevious scan showed TMJ JOCELYNE ZARAGOZA MD [address] [place] [address], [phone], [place] - [facility] 10/26/2024 13:34:48 OBGyn Episode No OBEpisode recorded.
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
== END 2025-03-24 14:04 | disposition home or self-care (01) ==
LOC: HO.NEURO 14:03
PROVIDERS: Visit Provider Psychiatry & Neurology Neurology
DX: G40.909 Epilepsy, unspecified, not intractable, without status epilepticus (principal); R94.01 Abnormal electroencephalogram [EEG]
CPT/HCPCS: 95816

== ENCOUNTER → 2025-03-24 14:15 | Outpatient (BNV) | payer OTHER, SELFPAY | PROVIDERS: Visit Provider Psychiatry & Neurology Neurology | DX: R94.01 Abnormal electroencephalogram [EEG] (principal) | CPT/HCPCS: 95816 ==

== ENCOUNTER 2025-05-19 11:33 | Outpatient (AMB) | payer OTHER, SELFPAY ==
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
--- OUTSIDE RECORDS SUMMARY | 2025-05-19 15:44 | XMS_ITS | Encounter Summary ---
Author Organization [facility] [place] [address] Care Team Providers Care Backroom Associate Name Role Phone Trisha Del Angel MD Primary Care Provider [phone] Encounter Details Date Type Department Care Team (Late st Contact Info) Description 07/22/2024 Lab Requisition [facility] - Main Lab [address] [facility] [place] [phone] Graciela Keene PA [address] [facility] [address] [place] [address] Nocturia Social History Tobacco Use Types Packs/Day Years Used Date Smoking Tobacco: Never Smokeless Tobacco: Never Alcohol Use Standard Drinks/Week Comments Yes 0 (1 standard drink = 0.6 oz pur e alcohol) Comments Unknown Sex and Gender Information Value Date Recorded Sex Assigned at Not on file Legal Sex Female 9:41 PM EST Gender Identity Not on file Sexual Orientation Not on file documented as of this encounter Plan of Treatment Upcoming Encounters Date Type Department Care Team (Late Contact Info) Description 06/02/2025 10:00 AM EDT Office Visit Gastroenterology - [place] [address] [facility] [address] [facility] [address] [place] [address] German Donald MD [address] [place] [phone] documented as of this encounter Procedures Procedure Name Priority Date/Time Associated Diagnosis Comments BACTERIAL IDENTIFICATION AND SUSCEPTIBILITY, AEROBIC Routine 07/21/2024 12:00 AM EST Nocturia documented in this encounter Results * (ABNORMAL) Bacterial identification and susceptibility, aerobic (07/21/2024 12:00 AM EST) Culture, Bacterial ID and Sensitivity Streptococcus beta-hemolytic Group B(A) 07/22/2024 12:43 PM EST [facility] Comment: Susceptibility testing is not routinely performed for Beta Streptococcus isolates since these organisms are predictably sensitive to Penicillin. If the Patient is not responding, is allergic to Penicillin, or further therapeutic information is requir ed, please consult an Infectious Disease Specialist. Other Topography unknown / Unknown 07/21/2024 07/22/2024 10:31 AM EST us [facility]OLOGY - GENERAL ORDER JOANNA Final Result [facility] [address] [place] [address], documented in this encounter Visit Diagnoses Diagnosis Nocturia documented in this encounter Care Teams Backroom Associate Relationship Specialty Start Date End Date Trisha Del Angel MD [address] [place] [address] PCP - General Internal Medicine 11/26/24 documented as of this encounter
--- OUTSIDE RECORDS SUMMARY | 2025-05-19 15:44 | XMS_ITS | Encounter Summary ---
Author Organization [facility] Address [address] [place] [address] Care Team Providers Care Precision Grinder Name Role Phone Trisha Del Angel MD Primary Care Provider [phone] Reason for Visit * Reason Onset Date Comments Provider Call Back 05/19/2025 Encounter Details Date Type Department Care Team (Late st Contact Info) Description 05/19/2025 Telephone Gastroenterology - [place] [address] [facility] [address] [place] [address] German Donald MD [address] [place] [phone] Social History Tobacco Use Types Packs/Day Years [...] on file documented as of this encounter Progress Notes * Kayli Clarice - 05/19/2025 2:57 PM EDT Patient called and said she had lunch (Sunday) the other day and as soon as she got home, she threwup and today she ate lunch again and thew up again. She is asking is this something she should be concerned about because she thought she should not be throwing up. She said today was more than on Sunday. She said she ate things that she ate before, nothing different- Please contact and advise. documented in this encounter Plan of Treatment Upcoming Encounters Date Type Department Care Team (Late st Contact Info) Description 06/02/2025 10:00 AM EDT Office Visit Gastroenterology - [place] [address] [facility] [address] [place] [phone] German Donald MD [address] [place] [phone] documented as of this encounter Visit Diagnoses Not on filedocumented in this encounter Care Teams Precision Grinder Relationship Specialty Start Date End Date Trisha Del Angel MD [address] [place] [phone] PCP - General Internal Medicine 11/26/24 documented as of this encounter
--- OUTSIDE RECORDS SUMMARY | 2025-05-19 15:44 | XMS_ITS | Clinical Summary ---
Author Organization LL [address] [place] [address] [place] [phone] Phone Care Team Providers Care Director Insurance Name Role Phone Trisha Del Angel MD [...] 08/11/2024 Hypothyroidism 08/11/2024 Seizure after head injury ([facility] V24, [facility] V28) 08/11/2024 Dysphagia 05/14/2018 Esophageal reflux 05/14/2018 GERD (gastroesophageal reflux disease) 8 Chronic constipation 04/05/2018 Irritable bowel syndrome 01/25/2018 Condition not found 09/27/2017 Overview (08/11/2024): Lactase deficiency 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 Internal hemorrhoids 02/23/2016 Fibromyalgia 12/02/2014 Neuropathy, peripheral 12/02/2014 Spondylosis, lumbar, with myelopathy 12/02/2014 Postural imbalance 09/04/2014 Encounters Date Type Department Care Team Description 05/19/2025 Telephone Gastroenterology [facility] 175 [facility] [address] [phone] German Donald MD 04/21/2025 Telephone Gastroenterology [facility] 175 [facility] [address] [phone] German Donald MD 04/02/2025 8:47 AM EDT - 04/02/2025 11:59 PM EDT Hospital Encounter [facility] Ultrasound [address] [place] [address] Elevation of levels of liver transaminase levels Discharge Disposition: Home or Self Care 03/13/2025 Telephone [facility]astro[facility]ology [place] 175 [facility] [address] [phone] German Donald MD 02/24/2025 Telephone [facility]ology [place] 175 [facility] [address] [phone] German Donald MD 02/19/2025 Telephone [facility]astro[facility]ology - [place] 175 [facility] [address] [phone] German Donald MD 02/17/2025 11:00 AM EDT Office Visit Gastroenterology [facility] 175 [facility] [address] [phone] German Donald MD Chronic constipation (Primary Dx); Irritable bowel syndrome with constipation; Gastroesophageal reflux disease without esophagitis; Gastroparesis; History of Isabell fundoplication; Elevation of levels of liver transaminase levels from Last 3 Months Surgical History Surgery Date Site/Laterality Comments OTHER SURGICAL HISTORY PROCEDURE: SC CRANIOT TEMPORAL LOBE W/O ELECTROCORTICOGRAPHY KNEE SURGERY [...] on file Sexual Orientation Not on file Obstetrics History Last Filed Vital Signs Vital [...] 10:00 AM EDT Office Visit Gastroenterology - [place] [address] [facility] [address] [place] [phone] German Donald MD [address] [place] [phone] Health Maintenance Due Date Last Done Comments [...] COVID-19 Vaccine (7 - Moderna risk season) 2025 06/27/2024, 07/21/2023, 04/12/2022, Additional history exists Influenza [...] Procedure Name Priority Date/Time Associated Diagnosis Comments US ABDOMEN LIMITED Routine 04/02/2025 9: 13 AM EDT Elevation of levels of liver transaminase levels CBC WITH AUTO DIFFERENTIAL Routine 02/17/2025 11:41 [...] Recently Relevant to Health Maintenance Results * US Abdomen Limited (04/02/2025 9:13 AM EDT) Anatomical Region Laterality Modality Body Ultrasound 04/08/2025 3:09 PM EDT Impressions 04/08/2025 3:10 PM EDT Normal study. -------- FINAL REPORT -------- Dictated By: Joy Hoang Dictated Date: 04/08/2025 15:09 ET Assigned Physician: Joy Hoang Reviewed and Electronically Signed By: Joy Hoang Signed Date: 04/08/2025 15:10 ET Workstation ID: [id number] Transcribed By: Self Edit Transcribed Date: 04/08/2025 15:09 ET Narrative 04/08/2025 3:10 PM EDT INDICATION: Elevated transaminases FINDINGS: Ultrasound of the right upper quadrant performed. Prior relevant studies: None Pancreas: Visualized portions of the pancreas are within normal limits. Liver: Normal in size, shape and echogenicity. No solid mass or intrahepatic ductal dilatation. Portal vein patent with hepatopedal flow. Gallbladder: No cholelithiasis, gallbladder wall thickening, pericholecystic fluid or distention. Common bile duct: 3 mm Right kidney: Survey images are within normal limits. Ascites: None Procedure Note Joy Hoang MD - 04/08/2025 INDICATION: Elevated transaminases FINDINGS: Ultrasound of the right upper quadrant performed. Prior relevant studies: None Pancreas: Visualized portions of the pancreas are within normal limits. Liver: Normal in size, shape and echogenicity. No solid mass orintrahepatic ductal dilatation. Portal vein patent with hepatopedalflow. Gallbladder: No cholelithiasis, gallbladder wall thickening,pericholecystic fluid or distention. Common bile duct: 3 mm Right kidney: Survey images are within normal limits. Ascites: None IMPRESSION: Normal study. -------- FINAL REPORT -------- Dictated By: Joy Hoang Dictated Date: 04/08/2025 15:09 ET Assigned Physician: Joy Hoang Reviewed and Electronically Signed By: Joy Hoang Signed Date: 04/08/2025 15:10 ET Workstation ID: [id number] Transcribed By: Self Edit Transcribed Date: 04/08/2025 15:09 ET us German Donald MD IMG US PROCEDURES Final Result * Hepatitis panel, acute with reflex to confirmation (02/17/2025 11:41 AM EDT) [facility] Hepatitis B Surface Ag Negative Negative LAB CHEMISTRY METHOD 02/17/2025 6:38 PM EDT [facility] Hepatitis A Antibody IgM Negative Negative LAB CHEMISTRY METHOD 02/17/2025 6:38 PM EDT [facility] Hep B Core IgM Negative Negative LAB CHEMISTRY METHOD 02/17/2025 6:38 PM EDT [facility] Hepatitis C Antibody Negative Negative LAB CHEMISTRY METHOD 02/17/2025 6:38 PM EDT [facility] Blood Venous blood specimen / Unknown Venipuncture / Unknown 02/17/2025 11:41 AM EDT 02/17/2025 11:41 AM EDT German Donald MD LAB BLOOD ORDERABLES Final Resul t [facility] [address] [place] [address], [place] [phone] * (ABNORMAL) CBC auto differential (02/17/2025 11:41 AM EDT) [facility] WBC 6.7 4.8 - 10.8 K/mcL LAB HEMETOLOGY METHOD 02/17/2025 2:01 PM EDT [facility] RBC 3.90 3.80 - 4.80 M/mcL LAB HEMETOLOGY METHOD 02/17/2025 2:01 PM EDT [facility] Hemoglobin 12.2 11.5 - 16.0 g/dL LAB HEMETOLOGY METHOD 02/17/2025 2:01 PM EDT [facility] Hematocrit 38.0 35.0 - 47.0 % LAB HEMETOLOGY METHOD 02/17/2025 2:01 PM EDT [facility] MCV 97.4 79.0 - 98.0 FL LAB HEMETOLOGY METHOD [facility]/17[facility]2025 [facility] MCH 31.3 27.0 - 32.0 pcg LAB HEMETOLOGY METHOD 02/17/2025 2:01 PM [facility] MCHC 32.1 32.0 - 37.0 g/dL LAB HEMETOLOGY METHOD 02/17/2025 2:01 PM [facility] RDW 13.2 11.0 - 15.0 % LAB HEMETOLOGY METHOD 02/17/2025 2:01 PM [facility] Platelets 265 130 - 400 K/mcL LAB HEMETOLOGY METHOD 02/17/2025 2:01 PM [facility] MPV 11.1(H) 7.0 - 11.0 FL LAB HEMETOLOGY METHOD 02/17/2025 2:01 PM [facility] NRBC 0.0 <1.0 % LAB HEMETOLOGY METHOD 02/17/2025 2:01 PM [facility] NRBC Absolute 0.00 <0.10 K/mcL LAB HEMETOLOGY METHOD 02/17/2025 2:01 PM [facility] Neutrophils Relative 67.4 % LAB HEMETOLOGY METHOD 02/17/2025 2:01 PM [facility] Lymphocytes Relative 21.8 % LAB HEMETOLOGY METHOD 02/17/2025 2:01 [facility] Monocytes Relative 7.7 % LAB HEMETOLOGY METHOD 02/17/2025 2:01 PM [facility] Eosinophils Relative 1.8 % LAB HEMETOLOGY METHOD 02/17/2025 2:01 PM [facility] Basophils Relative 1.1 % LAB HEMETOLOGY METHOD 02/17/2025 2:01 PM [facility] Immature Granulocytes Relative 0.2 % LAB HEMETOLOGY METHOD 02/17/2025 2:01 PM EDT [facility] Neutrophils Absolute 4.49 1.50 - 7.00 K/mcL LAB HEMETOLOGY METHOD 02/17/2025 2:01 PM EDT [facility] Lymphocytes Absolute 1.45 1.00 - 5.00 K/mcL LAB HEMETOLOGY METHOD 02/17/2025 2:01 PM EDT [facility] Monocytes Absolute 0.51 0.20 - 1.00 K/mcL LAB HEMETOLOGY METHOD 02/17/2025 2:01 PM EDT [facility] Eosinophils Absolute 0.12 0.00 - 0.50 K/mcL LAB HEMETOLOGY METHOD 02/17/2025 2:01 PM EDT [facility] Basophils Absolute 0.07 0.00 - 0.20 K/mcL LAB HEMETOLOGY METHOD 02/17/2025 2:[facility] Immature Granulocytes Absolute 0.01 0.00 - 0.03 K/mcL LAB HEMETOLOGY METHOD 02/17/2025 2:01 PM [facility] Blood Venous blood specimen / Unknown Venipuncture / Unknown 02/17/2025 11:41 AM EDT 02/17/2025 11:41 AM EDT German Donald MD LAB BLOOD ORDERABLES Final Resul t [facility] [address] [place] [address], * (ABNORMAL) Comprehensive metabolic panel (02/17/2025 11:41 AM EDT) Sodium 138 133 - 145 mmol/L LAB CHEMISTRY METHOD 02/17/2025 3:04 PM EDT [facility] Potassium 3.8 3.5 - 5.5 mmol/L LAB CHEMISTRY METHOD 02/17/2025 3:04 PM [facility] Chloride 105 96 - 110 mmol/L LAB CHEMISTRY METHOD 02/17/2025 3:04 PM [facility] CO2 26 21 - 32 mmol/L LAB CHEMISTRY METHOD 02/17/2025 3:04 PM [facility] Anion Gap 7 3 - 11 LAB CHEMISTRY METHOD 02/17/2025 3:04 PM [facility] Glucose 93 70 - 100 mg/dL LAB CHEMISTRY METHOD 02/17/2025 3:04 PM [facility] BUN 22 5 - 25 mg/dL LAB CHEMISTRY METHOD 02/17/2025 3:04 PM [facility] Creatinine 0.83 0.50 - 1.10 mg/dL LAB CHEMISTRY METHOD 02/17/2025 3:04 PM [facility] eGFR 83 >=60 mL/min/1. 73m2 LAB CHEMISTRY METHOD 02/17/2025 3:04 PM [facility] Comment:Calculation based on the Chronic Kidney Disease Epidemiology Collaboration (CKD-EPI) equation refit without adjustment for race. BUN/Creatinine Ratio 26.5 LAB CHEMISTRY METHOD 02/17/2025 3:04 PM [facility] Calcium 9.5 8.5 - 10.5 mg/dL LAB CHEMISTRY METHOD 02/17/2025 3:04 PM [facility] AST (SGOT) 59(H) 10 - 42 unit/L LAB CHEMISTRY METHOD 02/17/2025 3:04 PM [facility] ALT (SGPT) 111(H) 10 - 60 unit/L LAB CHEMISTRY METHOD 02/17/2025 3:04 PM [facility] Alkaline Phosphatase 122(H) 42 - 121 unit/L LAB CHEMISTRY METHOD 02/17/2025 3:04 PM [facility] Total Protein 6.8 6.0 - 8.0 g/dL LAB CHEMISTRY METHOD 02/17/2025 3:04 PM EDT [facility] Albumin 3.9 3.2 - 5.0 g/dL LAB CHEMISTRY METHOD 02/17/2025 3:04 PM EDT [facility] Total Bilirubin 0.3 0.0 - 1.4 mg/dL LAB CHEMISTRY METHOD 02/17/2025 3:04 PM EDT [facility] Blood Venous blood specimen / Unknown Venipuncture / Unknown 02/17/2025 11:41 AM EDT 02/17/2025 11:41 AM EDT German Donald MD LAB BLOOD ORDERABLES Final Resul t [facility] [address] [place] [address], * Colonoscopy (07/14/2019) Colonoscopy No interpretation , abstracted Anatomical Region Laterality Modality Other Historical Provider HEALTH MAINTENANCE Final Result from Last 3 Months or Most Recently Relevant to Health Maintenance Insurance [employer] [place] [employer] Care Teams Director Insurance Relationship Specialty Start Date End Date Trisha Del Angel MD [address] [place] [phone] PCP - General Internal Medicine 11/26/24
== END 2025-05-19 12:42 | disposition home or self-care (01) ==
LOC: HO.HSM 11:33
PROVIDERS: Visit Provider Psychiatry & Neurology Neurology
DX: G43.709 Chronic migraine without aura, not intractable, without status migrainosus (principal); G40.909 Epilepsy, unspecified, not intractable, without status epilepticus; G47.33 Obstructive sleep apnea (adult) (pediatric); S06.9XAA Unspecified intracranial injury with loss of consciousness status unknown, initial encounter
CPT/HCPCS: 99214

== ENCOUNTER → 2025-05-19 11:33 | Outpatient (BNVA) | payer OTHER, SELFPAY | PROVIDERS: Visit Provider Psychiatry & Neurology Neurology | DX: G43.709 Chronic migraine without aura, not intractable, without status migrainosus (principal); G40.909 Epilepsy, unspecified, not intractable, without status epilepticus; G47.33 Obstructive sleep apnea (adult) (pediatric); Z99.89 Dependence on other enabling machines and devices | CPT/HCPCS: 99212 ==

== ENCOUNTER 2025-08-12 11:33 | Outpatient (AMB) | payer OTHER, SELFPAY ==
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
== END 2025-08-12 11:50 | disposition home or self-care (01) ==
LOC: HO.HSM 11:33
PROVIDERS: Visit Provider Psychiatry & Neurology Neurology
DX: G43.709 Chronic migraine without aura, not intractable, without status migrainosus (principal); G40.909 Epilepsy, unspecified, not intractable, without status epilepticus; G47.33 Obstructive sleep apnea (adult) (pediatric); S06.9XAA Unspecified intracranial injury with loss of consciousness status unknown, initial encounter
CPT/HCPCS: 99214

== ENCOUNTER → 2025-08-12 11:33 | Outpatient (BNVA) | payer OTHER, SELFPAY | PROVIDERS: Visit Provider Psychiatry & Neurology Neurology | DX: G43.709 Chronic migraine without aura, not intractable, without status migrainosus (principal); G40.909 Epilepsy, unspecified, not intractable, without status epilepticus; G47.33 Obstructive sleep apnea (adult) (pediatric); S06.9XAA Unspecified intracranial injury with loss of consciousness status unknown, initial encounter; Z99.89 Dependence on other enabling machines and devices; Z79.899 Other long term (current) drug therapy | CPT/HCPCS: 99212 ==